=== PATIENT | female | born 1995 | race Caucasian/White ===

== ENCOUNTER 2018-11-18 12:56 | Emergency (ER) | payer MEDICAID ==
[~2018-11-18] VITALS: Ht 149.9 cm; Wt 54.4 kg
[2018-11-18 13:19] VITALS: BP 113/68
[2018-11-18 13:57] LABS: Urine Bacteria NONE SEEN /hpf (None Seen); Urine Blood 2+ /uL (Negative); Urine Specific Gravity 1.015 (1.001-1.035); Urine WBC 657 /hpf (0 - 5); Urine WBC Clumps PRESENT /hpf (None Seen)
== END 2018-11-18 14:28 | disposition home or self-care (01) ==
LOC: ER 12:56
DX: N39.0 Urinary tract infection, site not specified (principal); N76.0 Acute vaginitis; B96.89 Other specified bacterial agents as the cause of diseases classified elsewhere
CPT/HCPCS: 81001; 81025; 87210

== ENCOUNTER 2020-08-16 22:21 | Emergency (ER) | payer MEDICAID ==
[~2020-08-16] VITALS: Ht 149.9 cm; Wt 77.1 kg
[2020-08-16 22:25] VITALS: BP 110/76
[2020-08-16 22:58] LABS: Urine Bacteria FEW /hpf (None Seen); Urine Blood Negative /uL (Negative); Urine WBC 1 /hpf (0 - 5)
== END 2020-08-16 23:20 | disposition left against medical advice (07) ==
LOC: ER 22:21
DX: R11.2 Nausea with vomiting, unspecified (principal); Z53.21 Procedure and treatment not carried out due to patient leaving prior to being seen by health care provider
CPT/HCPCS: 81001

== ENCOUNTER 2022-03-10 10:55 | Emergency (ER) | payer MEDICAID ==
[~2022-03-10] VITALS: Ht 149.9 cm; Wt 83.3 kg
[2022-03-10 12:08] LABS: Urine Bacteria FEW /hpf (None Seen); Urine Blood Negative /uL (Negative); Urine Mucus FEW (None Seen); Urine Specific Gravity 1.018 (1.001-1.035); Urine WBC 3 /hpf (0 - 5)
[2022-03-10 12:14] LABS: Eosinophils # (auto) 0 10 ^3/uL (0-0.8)
[2022-03-10 12:16] LABS: Basophils # (auto) 0.1 10 ^3/uL (0-0.2); Basophils % (auto) 0.5 % (0.0-2.0); Eosinophils % (auto) 0.2 % (0.0-7.0); Hematocrit 36.4 % (36.0-46.0); Hemoglobin 11.7 g/dL (12.2-16.2); Lymphocytes % (auto) 18.9 % (10.0-50.0); Mean Corpuscular Hemoglobin 26.4 pg (28.0-32.0); Mean Corpuscular Hgb Conc. 32.3 g/dL (32.0-36.0); Mean Corpuscular Volume 81.6 fL (80.0-100.0); Monocytes # (auto) 0.6 10 ^3/uL (0-1.3); Monocytes % (auto) 5.6 % (0.0-12.0); Neutrophils # (auto) 7.7 10 ^3/uL (1.6-8.6); Neutrophils % (auto) 74.8 % (37.0-80.0); Red Blood Cells 4.45 10^6/uL (4.0-5.20); Red Cell Distribution Width 16.3 % (11.8-14.3); White Blood Cell 10.4 10^3/uL (4.4-10.8)
[2022-03-10 12:40] LABS: Calcium 8.9 mg/dL (8.5-10.1); Potassium 3.9 mmol/L (3.5-5.1)
[2022-03-10 12:46] LABS: BUN/Creatinine Ratio 10.8; Bilirubin, Total 0.3 mg/dL (0.2-1.0); Total Protein 6.7 g/dL (6.4-8.2)
[2022-03-10 16:46] VITALS: BP 106/56
== END 2022-03-10 16:48 | disposition home or self-care (01) ==
LOC: ER 10:55
DX: O26.893 Other specified pregnancy related conditions, third trimester (principal); R42 Dizziness and giddiness; Z3A.30 30 weeks gestation of pregnancy
CPT/HCPCS: 36415; 76805; 80053; 81001; 84702; 85025